=== PATIENT | male | born 2000 | race Caucasian/White ===

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

== ENCOUNTER 2021-01-02 15:53 | Emergency (ER) | payer OTHER ==
[~2021-01-02] VITALS: Ht 188 cm; Wt 131.5 kg
== END 2021-01-02 17:35 | disposition home or self-care (01) ==
LOC: ER 15:53
DX: S83.005A Unspecified dislocation of left patella, initial encounter (principal); W18.39XA Other fall on same level, initial encounter; Y93.89 Activity, other specified; F17.200 Nicotine dependence, unspecified, uncomplicated; Z88.0 Allergy status to penicillin; Z88.5 Allergy status to narcotic agent
CPT/HCPCS: 29505; 73562-LT; 96374; 99283-25; J1885

== ENCOUNTER 2021-01-05 19:53 | Emergency (ER) | payer OTHER | END 2021-01-05 20:34 | disposition left against medical advice (07) | LOC: ER 19:53 | DX: Z53.21 Procedure and treatment not carried out due to patient leaving prior to being seen by health care provider (principal) ==